=== PATIENT | female | born 1980 | race Hispanic/Latino ===

== ENCOUNTER 2018-07-10 00:26 | Emergency (ER) | payer BC ==
[2018-07-10 01:21] LABS: APPEARANCE,URINE Cloudy (CLEAR); BILIRUBIN,URINE Negative (NEGATIVE); COLOR,URINE Yellow (YELLOW); GLUCOSE, URINE (UA) Negative (NEGATIVE); KETONES,URINE Trace mg/dL (NEGATIVE); LEUKOCYTE ESTERASE ,URINE Large (NEGATIVE); NITRATE,URINE Negative (NEGATIVE); OCCULT BLOOD,URINE Moderate (NEGATIVE); PH,URINE 6.5 (5.0-8.0); PROTEIN,URINE Trace (NEGATIVE); UROBILINOGEN,URINE 0.2 mg/dL (0.2-1.0)
[2018-07-10 02:05] LABS: BASOPHILS % (AUTO) 0.2 % (0.0-5.0); HEMATOCRIT 28.1 % (36-48); LYMPHOCYTES % (AUTO) 4.4 % (21.0-51.0); MEAN CORPUSCULAR HEMOGLOBIN 28.9 pg (27.0-33.0); MEAN CORPUSCULAR HGB CONC 34.6 g/dL (32.0-36.0); MEAN CORPUSCULAR VOLUME 83.7 fL (79-99); MONOCYTES % (AUTO) 8.3 % (3.0-13.0); NEUTROPHILS % (AUTO) 87.1 % (40.0-77.0); NUCLEATED RED BLOOD CELLS 0.1 % (0.0-0.19); PLATELET COUNT (AUTO) 142 K/uL (130-400); RED BLOOD CELL COUNT(AUTO) 3.36 MIL/uL (4.00-5.50); RED CELL DISTRIBUTION WIDTH 15.5 % (11.0-15.5); WHITE BLOOD COUNT (AUTO) 3.2 K/uL (4.8-10.8)
[2018-07-10] MEDS ORDERED: SODIUM CHLORIDE 0.9% 1000ML 1,000 ML IV ONE ×2 (02:08→03:09)
[2018-07-10 02:12] LABS: BACTERIA,URINE Moderate /HPF (None Seen); WBC,URINE 26-50 /HPF (0-1)
[2018-07-10 02:20] LABS: INR 0.96 (0.85-1.15); PARTIAL THROMBOPLASTIN TIME 25.6 SEC (26.3-35.5); PROTHROMBIN TIME 10.1 SEC (9.6-11.6)
[2018-07-10 02:22] LABS: CREATININE 0.7 mg/dL (0.5-1.5); POTASSIUM 3.6 mmol/L (3.5-5.1)
[2018-07-10 02:35] LABS: ALBUMIN 3.4 g/dL (3.5-5.0); BILIRUBIN,TOTAL 0.6 mg/dL (0.2-1.0); MAGNESIUM 1.6 mg/dL (1.80-2.40); THYROID STIMULATING HORMONE 0.69 uIU/mL (0.36-3.74)
[2018-07-10] MEDS ORDERED: MAGNESIUM OXIDE 400 MG TABLET PO ONE (03:09)
[2018-07-10] MEDS ORDERED: MAGNESIUM 2GM PREMIX 50ML 50 ML IV ONE (03:10)
[2018-07-10] MEDS ORDERED: CEFTRIAXONE SODIUM 1 GM ONE (03:10)
== END 2018-07-10 05:13 | disposition home or self-care (01) ==
LOC: EDH 00:26
DX: N39.0 Urinary tract infection, site not specified (principal); E86.9 Volume depletion, unspecified; E83.42 Hypomagnesemia
CPT/HCPCS: 36415; 80053; 81001; 82550; 83605; 83690; 83735; 84443; 84484; 85025; 85610; 85730; 96365; 96366; 96375; 99284; J0696; J3475; J7030 ×2

== ENCOUNTER 2020-03-03 22:04 | Inpatient (IN) | payer BC ==
[~2020-03-03] VITALS: Ht 170.2 cm; Wt 78.9 kg
[2020-03-03 23:08] LABS: BASOPHILS % (AUTO) 0.3 % (0.0-5.0); HEMATOCRIT 36.2 % (36-48); LYMPHOCYTES % (AUTO) 5.5 % (21.0-51.0); MEAN CORPUSCULAR HGB CONC 34.8 g/dL (32.0-36.0); MEAN CORPUSCULAR VOLUME 83.2 fL (79-99); MONOCYTES % (AUTO) 6.9 % (3.0-13.0); NEUTROPHILS % (AUTO) 85.9 % (40.0-77.0); PLATELET COUNT (AUTO) 300 K/uL (130-400); RED BLOOD CELL COUNT(AUTO) 4.35 MIL/uL (4.00-5.50); RED CELL DISTRIBUTION WIDTH 15.7 % (11.0-15.5); WHITE BLOOD COUNT (AUTO) 9.8 K/uL (4.8-10.8)
[2020-03-03 23:23] LABS: BILIRUBIN,TOTAL 0.4 mg/dL (0.2-1.0); POTASSIUM 4.1 mmol/L (3.5-5.1); TOTAL PROTEIN, SERUM 7.3 g/dL (6.0-8.3)
[2020-03-03 23:29] LABS: B-TYPE NATRIURETIC PEPTIDE 5 pg/mL (0-100)
[2020-03-03 23:30] LABS: RAPID GROUP A STREP NEGATIVE (NEGATIVE)
[2020-03-03 23:40] LABS: ALBUMIN 3.1 g/dL (3.5-5.0); CREATININE 0.5 mg/dL (0.5-1.5)
[2020-03-04] MEDS ORDERED: MAGNESIUM OXIDE 400 MG TABLET PO ONE (00:39)
[2020-03-04] MEDS ORDERED: BENZONATATE 100 MG CAPSULE PO ONE (00:40)
[2020-03-04] MEDS ORDERED: IOHEXOL-350 75 ML VIAL IV ONE (00:56)
[2020-03-04] MEDS ORDERED: ALBUTEROL INHALER 90MCG/INH IH PRN (04:15)
[2020-03-04] MEDS ORDERED: ONDANSETRON HCL 4 MG/2 ML VIAL IV PRN (04:30)
[2020-03-04] MEDS ORDERED: DOXYCYCLINE 100MG+NS 250ML IV SCH (04:30)
[2020-03-04] MEDS ORDERED: ACETAMINOPHEN 325 MG TAB PO PRN ×2 (04:30)
[2020-03-04] MEDS ORDERED: CEFTRIAXONE SODIUM 1 GM ONE ×2 (04:32→11:23)
[2020-03-04] MEDS ORDERED: ALBUTEROL INHALER 90MCG/INH IH ONE (04:33)
[2020-03-04] MEDS ORDERED: DOXYCYCLINE HYCLATE 100 MG TABLET PO ONE ×2 (04:35→11:22)
[2020-03-04] MEDS ORDERED: ONDANSETRON HCL 4 MG/2 ML VIAL ONE (05:03)
[2020-03-04 05:30] LABS: HEMATOCRIT 32.5 % (36-48); MEAN CORPUSCULAR HEMOGLOBIN 28.9 pg (27.0-33.0); MEAN CORPUSCULAR HGB CONC 34.5 g/dL (32.0-36.0); MEAN CORPUSCULAR VOLUME 83.8 fL (79-99); PLATELET COUNT (AUTO) 247 K/uL (130-400); RED BLOOD CELL COUNT(AUTO) 3.88 MIL/uL (4.00-5.50); RED CELL DISTRIBUTION WIDTH 15.6 % (11.0-15.5); WHITE BLOOD COUNT (AUTO) 10.1 K/uL (4.8-10.8)
[2020-03-04 06:08] LABS: INR 0.88 (0.85-1.15); PROTHROMBIN TIME 9.6 SEC (9.6-11.6)
[2020-03-04 06:20] LABS: ALBUMIN 2.7 g/dL (3.5-5.0); BILIRUBIN,TOTAL 0.3 mg/dL (0.2-1.0); CREATININE 0.6 mg/dL (0.5-1.5); CRP QUANTITATIVE 69.2 mg/L (0.00-9.0); MAGNESIUM 1.4 mg/dL (1.80-2.40); POTASSIUM 3.8 mmol/L (3.5-5.1); TOTAL PROTEIN, SERUM 6.2 g/dL (6.0-8.3)
[2020-03-04 07:51] LABS: LYMPHOCYTES % (MANUAL) 4 % (22-44); MAN.DIFF COMMENT-IMPRESSION MANUAL DIFFERENTIAL; MONOCYTES % (MANUAL) 4 % (2-9); PLATELET MORPHOLOGY COMMENT ADEQUATE; SEGMENTED NEUTROPHILS % 92 % (40-70)
[2020-03-04] MEDS ORDERED: ERGOCALCIFEROL (VITAMIN D2) 50,000 UNIT CAPSULE PO SCH (10:46)
[2020-03-04] MEDS ORDERED: DIPHENHYDRAMINE HCL 25 MG CAPSULE PO PRN (10:47)
[2020-03-04] MEDS ORDERED: NITROGLYCERIN 0.4 MG SL TAB SL PRN (10:49)
[2020-03-04] MEDS ORDERED: HYDRALAZINE HCL 20 MG/ML VIAL IV PRN (10:50)
[2020-03-04] MEDS ORDERED: METHYLPREDNISOLONE SOD SUCC 40MG/ML 1ML ONE ×2 (11:22→16:46)
[2020-03-04] MEDS ORDERED: ASCORBIC ACID 500 MG TAB ONE (11:22)
[2020-03-04] MEDS ORDERED: ENOXAPARIN SODIUM 40 MG/0.4 ML SYRINGE SQ ONE (11:23)
[2020-03-04] MEDS ORDERED: FAMOTIDINE 20MG TAB 20 MG TAB ONE (11:23)
[2020-03-04] MEDS ORDERED: ERGOCALCIFEROL (VITAMIN D2) 50,000 UNIT CAPSULE ONE (11:23)
[2020-03-04] MEDS ORDERED: ZINC SULFATE 220 CAPSULE ONE (11:23)
--- NOTE | 2020-03-04 18:43 | NUR ---
INITIAL: Call placed to FLAQUITO Morgan (spouse) to discuss dcp. Per Eddie, prior to admission pt was independent w ambulation and ADLs. She has a nebulizer avail. if needed. Per Eddie he transports her where needed. he mentions that they live together w their young children. Per eddie DCP is for pt to return home. CM to continue to follow and wait for MD recommendations. Addendum: 03/04/20 at 1846 by RAMON TROTTER Amended: Links added.
[2020-03-05] MEDS ORDERED: DOXYCYCLINE HYCLATE 100 MG TABLET PO ONE ×3 (00:42→21:04)
[2020-03-05] MEDS ORDERED: CEFTRIAXONE SODIUM 1 GM ONE ×3 (00:42→21:04)
[2020-03-05] MEDS ORDERED: METHYLPREDNISOLONE SOD SUCC 40MG/ML 1ML ONE ×4 (00:42→21:03)
[2020-03-05] MEDS ORDERED: FAMOTIDINE/PF 20 MG/2 ML VIAL IV ONE ×2 (00:43→21:04)
[2020-03-05 06:48] LABS: BASOPHILS % (AUTO) 0.1 % (0.0-5.0); HEMATOCRIT 33.5 % (36-48); LYMPHOCYTES % (AUTO) 4.8 % (21.0-51.0); MEAN CORPUSCULAR HEMOGLOBIN 28.9 pg (27.0-33.0); MEAN CORPUSCULAR HGB CONC 34.6 g/dL (32.0-36.0); MEAN CORPUSCULAR VOLUME 83.3 fL (79-99); MONOCYTES % (AUTO) 1.1 % (3.0-13.0); PLATELET COUNT (AUTO) 244 K/uL (130-400); RED BLOOD CELL COUNT(AUTO) 4.02 MIL/uL (4.00-5.50); RED CELL DISTRIBUTION WIDTH 15.5 % (11.0-15.5); WHITE BLOOD COUNT (AUTO) 8.8 K/uL (4.8-10.8)
[2020-03-05 07:00] LABS: ALANINE AMINOTRANSFERASE 15 U/L (12-78); ALBUMIN 2.7 g/dL (3.5-5.0); ASPARTATE AMINOTRANSFERASE 13 U/L (10-37); BILIRUBIN,TOTAL 0.2 mg/dL (0.2-1.0); CARBON DIOXIDE 26 mmol/L (21-32); CHLORIDE 104 mmol/L (101-111); CREATININE 0.8 mg/dL (0.5-1.5); GLOMERULAR FILTR. RATE CALC 84 mL/min (>60); GLUCOSE,RANDOM 163 mg/dL (70-105); LACTATE DEHYDROGENASE 120 U/L (81-234); POTASSIUM 3.7 mmol/L (3.5-5.1); SODIUM SERUM 137 mmol/L (136-145); TOTAL PROTEIN, SERUM 7.1 g/dL (6.0-8.3); UREA NITROGEN, BLOOD 5 mg/dL (7-18)
[2020-03-05] MEDS ORDERED: ASCORBIC ACID 500 MG TAB ONE (09:29)
[2020-03-05] MEDS ORDERED: ZINC SULFATE 220 CAPSULE ONE (09:30)
[2020-03-05] MEDS ORDERED: FAMOTIDINE 20MG TAB 20 MG TAB ONE (09:30)
[2020-03-05] MEDS ORDERED: ENOXAPARIN SODIUM 40 MG/0.4 ML SYRINGE SQ ONE (09:30)
[2020-03-05] MEDS ORDERED: DiphenhydrAMINE HCL 25 MG/10 ML ELIXIR UDCUP ONE (21:37)
[2020-03-06 06:45] LABS: BASOPHILS % (AUTO) 0.1 % (0.0-5.0); HEMATOCRIT 33.9 % (36-48); LYMPHOCYTES % (AUTO) 2.4 % (21.0-51.0); MEAN CORPUSCULAR HEMOGLOBIN 28.8 pg (27.0-33.0); MEAN CORPUSCULAR HGB CONC 33.9 g/dL (32.0-36.0); MONOCYTES % (AUTO) 2.5 % (3.0-13.0); NEUTROPHILS % (AUTO) 94.1 % (40.0-77.0); PLATELET COUNT (AUTO) 286 K/uL (130-400); RED BLOOD CELL COUNT(AUTO) 3.99 MIL/uL (4.00-5.50); RED CELL DISTRIBUTION WIDTH 15.9 % (11.0-15.5)
[2020-03-06 07:15] LABS: ALANINE AMINOTRANSFERASE 15 U/L (12-78); ALBUMIN 2.8 g/dL (3.5-5.0); ASPARTATE AMINOTRANSFERASE 12 U/L (10-37); BILIRUBIN,TOTAL 0.1 mg/dL (0.2-1.0); CARBON DIOXIDE 28 mmol/L (21-32); CHLORIDE 106 mmol/L (101-111); CREATININE 0.8 mg/dL (0.5-1.5); GLOMERULAR FILTR. RATE CALC 84 mL/min (>60); GLUCOSE,RANDOM 134 mg/dL (70-105); LACTATE DEHYDROGENASE 122 U/L (81-234); POTASSIUM 3.8 mmol/L (3.5-5.1); SODIUM SERUM 140 mmol/L (136-145); UREA NITROGEN, BLOOD 12 mg/dL (7-18)
[2020-03-06] MEDS: DOXYCYCLINE HYCLATE 100 MG TABLET PO SCH ×2 (09:00→20:52)
[2020-03-06] MEDS: ASCORBIC ACID 500 MG TAB PO SCH (09:00)
[2020-03-06] MEDS: FAMOTIDINE 20MG TAB 20 MG TAB PO SCH ×2 (09:00→20:52)
[2020-03-06] MEDS: ZINC SULFATE 220 CAPSULE PO SCH (09:00)
[2020-03-06] MEDS: ENOXAPARIN SODIUM 40 MG/0.4 ML SYRINGE SQ SCH (09:00)
[2020-03-06] MEDS ORDERED: ESTR0.9T2 PO (09:27)
[2020-03-06] MEDS ORDERED: FLUT1DIS4 IH (09:27)
[2020-03-06] MEDS ORDERED: BENZ-51 PO (09:27)
[2020-03-06] MEDS ORDERED: ASCORBIC ACID 500 MG TAB ONE (10:13)
[2020-03-06] MEDS ORDERED: DOXYCYCLINE HYCLATE 100 MG TABLET PO ONE (10:13)
[2020-03-06] MEDS ORDERED: METHYLPREDNISOLONE SOD SUCC 40MG/ML 1ML ONE ×2 (10:13→15:22)
[2020-03-06] MEDS ORDERED: FAMOTIDINE/PF 20 MG/2 ML VIAL IV ONE (10:14)
[2020-03-06] MEDS ORDERED: ZINC SULFATE 220 CAPSULE ONE (10:14)
[2020-03-06] MEDS ORDERED: CEFTRIAXONE SODIUM 1 GM ONE (10:14)
[2020-03-06] MEDS ORDERED: ENOXAPARIN SODIUM 40 MG/0.4 ML SYRINGE SQ ONE (10:14)
[2020-03-06] MEDS: CEFTRIAXONE SODIUM 1 GM IVP SCH ×2 (10:45→23:02)
[2020-03-06] MEDS: METHYLPREDNISOLONE SOD SUCC 40MG/ML 1ML IVP SCH ×2 (14:00→20:52)
[2020-03-06] MEDS ORDERED: ACETAMINOPHEN 325 MG TAB ONE (15:30)
[2020-03-06] MEDS: ALBUTEROL INHALER 90MCG/INH IH SCH ×2 (18:00→23:03)
[2020-03-06 19:30] VITALS: BP 161/90
--- NOTE | 2020-03-06 20:00 | NUR ---
RESP STATUS Pt on room air,denies pain or sob.
--- NOTE | 2020-03-06 22:00 | NUR ---
SHOWER Pt took a shower,tolerated well.
[2020-03-06 23:50] VITALS: BP 131/84
[2020-03-07] MEDS: ALBUTEROL INHALER 90MCG/INH IH SCH ×4 (02:57→14:08)
[2020-03-07 04:00] VITALS: BP 134/97
[2020-03-07 08:00] VITALS: BP 149/85
[2020-03-07 08:16] LABS: BASOPHILS % (AUTO) 0.2 % (0.0-5.0); LYMPHOCYTES % (AUTO) 4.4 % (21.0-51.0); MEAN CORPUSCULAR HEMOGLOBIN 28.5 pg (27.0-33.0); MEAN CORPUSCULAR HGB CONC 33.2 g/dL (32.0-36.0); MEAN CORPUSCULAR VOLUME 85.6 fL (79-99); MONOCYTES % (AUTO) 2.6 % (3.0-13.0); PLATELET COUNT (AUTO) 285 K/uL (130-400); RED BLOOD CELL COUNT(AUTO) 4.32 MIL/uL (4.00-5.50); RED CELL DISTRIBUTION WIDTH 15.9 % (11.0-15.5); WHITE BLOOD COUNT (AUTO) 15.5 K/uL (4.8-10.8)
[2020-03-07 08:28] LABS: ALANINE AMINOTRANSFERASE 23 U/L (12-78); ALBUMIN 2.8 g/dL (3.5-5.0); ASPARTATE AMINOTRANSFERASE 18 U/L (10-37); BILIRUBIN,TOTAL 0.2 mg/dL (0.2-1.0); CARBON DIOXIDE 27 mmol/L (21-32); CHLORIDE 103 mmol/L (101-111); CREATININE 0.7 mg/dL (0.5-1.5); GLOMERULAR FILTR. RATE CALC 99 mL/min (>60); GLUCOSE,RANDOM 100 mg/dL (70-105); LACTATE DEHYDROGENASE 129 U/L (81-234); POTASSIUM 3.6 mmol/L (3.5-5.1); SODIUM SERUM 139 mmol/L (136-145); TOTAL PROTEIN, SERUM 7.1 g/dL (6.0-8.3); UREA NITROGEN, BLOOD 14 mg/dL (7-18)
[2020-03-07] MEDS: FAMOTIDINE 20MG TAB 20 MG TAB PO SCH (11:04)
[2020-03-07] MEDS: CEFTRIAXONE SODIUM 1 GM IVP SCH (11:04)
[2020-03-07] MEDS: ASCORBIC ACID 500 MG TAB PO SCH (11:05)
[2020-03-07] MEDS: DOXYCYCLINE HYCLATE 100 MG TABLET PO SCH (11:05)
[2020-03-07] MEDS: ZINC SULFATE 220 CAPSULE PO SCH (11:05)
[2020-03-07] MEDS: METHYLPREDNISOLONE SOD SUCC 40MG/ML 1ML IVP SCH ×2 (11:05→14:08)
[2020-03-07] MEDS: ENOXAPARIN SODIUM 40 MG/0.4 ML SYRINGE SQ SCH (11:09)
[2020-03-07 12:00] VITALS: BP 173/87
--- NOTE | 2020-03-07 12:00 | NUR ---
PT STATES SOB WHEN WALKING. PENDING RT TO EVAL FOR HOME O2.
[2020-03-07 17:56] VITALS: BP_SYST 118; BP_SYST 145; BP_DIAS 61; BP_DIAS 92
[2020-03-07] MEDS ORDERED: AZIT500T2 PO (18:11)
--- NOTE | 2020-03-07 18:30 | NUR ---
PER MD ORDERS DC'D PT HOME. PIV AND TELE REMOVED. IV TIP INTACT. DISCHARGE AND MEDICATION INSTRUCTIONS GIVEN TO PT TO FOLLOW UP WITH PCP AND ONCOLOGIST. PT STATES UNDERSTANDING. PT WAITING FOR .
== END 2020-03-07 19:15 | disposition home or self-care (01) | DRG 193 ==
LOC: EDH 22:04 → EDHIP 03-04 04:27 → 3BH 03-06 19:46
PROVIDERS: ADMIT Hospitalist; ATTEND Hospitalist
DX: J18.9 Pneumonia, unspecified organism (principal); J96.01 Acute respiratory failure with hypoxia; D89.9 Disorder involving the immune mechanism, unspecified; Z20.828 Contact with and (suspected) exposure to other viral communicable diseases; E83.42 Hypomagnesemia; Z85.41 Personal history of malignant neoplasm of cervix uteri; Z92.21 Personal history of antineoplastic chemotherapy; Z88.8 Allergy status to other drugs, medicaments and biological substances
CPT/HCPCS: 36415; 71045; 71275; 80053; 82550; 82728; 83605; 83615; 83735; 83880; 84145; 84484; 85025; 85378; 85610; 85730; 86140; 87040; 87071; 87116; 87205; 87206; 87804; 87880; 93005; 93970; 94760; G0378; J0696; J1650; J2405; J2920; J3490; Q9967; U0003

== ENCOUNTER 2021-02-04 16:51 | Inpatient (IN) | payer BC, OTHER ==
[~2021-02-04] VITALS: Ht 167.6 cm; Wt 46.3 kg
[2021-02-04] MEDS: NACL 0.9% 1000ML 1,000 ML IV SCH (07:45)
[~2021-02-04 16:51] MED LIST: AZIT500T2 PO; BENZ-70 PO; ESTR0.9T2 PO; FLUT1DIS4 IH
[2021-02-04 16:56] VITALS: BP 176/123
[2021-02-04 17:34] LABS: BASOPHILS % (AUTO) 0.3 % (0.0-5.0); HEMATOCRIT 34.6 % (36-48); LYMPHOCYTES % (AUTO) 1.2 % (21.0-51.0); MEAN CORPUSCULAR HEMOGLOBIN 26.6 pg (27.0-33.0); MEAN CORPUSCULAR HGB CONC 30.6 g/dL (32.0-36.0); MEAN CORPUSCULAR VOLUME 86.7 fL (79-99); MONOCYTES % (AUTO) 2.3 % (3.0-13.0); NEUTROPHILS % (AUTO) 93.9 % (40.0-77.0); PLATELET COUNT (AUTO) 240 K/uL (130-400); RED BLOOD CELL COUNT(AUTO) 3.99 MIL/uL (4.00-5.50); RED CELL DISTRIBUTION WIDTH 18.4 % (11.0-15.5); WHITE BLOOD COUNT (AUTO) 23.1 K/uL (4.8-10.8)
[2021-02-04 17:47] LABS: INR 1.01 (0.85-1.15)
[2021-02-04 17:49] LABS: PARTIAL THROMBOPLASTIN TIME 23.1 SEC (26.3-35.5)
[2021-02-04 17:58] VITALS: BP 161/111
[2021-02-04 17:58] LABS: ALBUMIN 3.2 g/dL (3.5-5.0); BILIRUBIN,TOTAL 0.5 mg/dL (0.2-1.0); CREATININE 0.5 mg/dL (0.5-1.5); POTASSIUM 3.7 mmol/L (3.5-5.1); TOTAL PROTEIN, SERUM 7.1 g/dL (6.0-8.3); TROPONIN I 0.04 ng/mL (0.00-0.06)
[2021-02-04] MEDS ORDERED: LACTATED RINGERS IV ONE (18:00)
[2021-02-04] MEDS ORDERED: ONDANSETRON 4MG INJ IVP ONE (18:00)
[2021-02-04 18:06] LABS: B-TYPE NATRIURETIC PEPTIDE 389 pg/mL (0-100)
[2021-02-04] MEDS ORDERED: MORPHINE 2 MG SYG IVP ONE (18:15)
[2021-02-04] MEDS ORDERED: MORP100S3 PO (18:23)
[2021-02-04] MEDS ORDERED: FENT-77 TD (18:26)
[2021-02-04] MEDS ORDERED: SENN-308 PO (18:28)
[2021-02-04] MEDS ORDERED: DEXA6TAB PO (18:29)
[2021-02-04] MEDS ORDERED: ACET-66 PO (18:30)
[2021-02-04] MEDS ORDERED: DIAZ2TAB3 PO (18:31)
[2021-02-04] MEDS ORDERED: MORPHINE 4 MG SYG ONE (18:33)
[2021-02-04] MEDS ORDERED: PREM125 PO (18:33)
[2021-02-04] MEDS: 0.9% NACL 50ML 50 ML IV SCH (19:45)
[2021-02-04] MEDS ORDERED: NITROGLYCERIN 0.4 MG SL TAB SL PRN (20:00)
[2021-02-04] MEDS ORDERED: ONDANSETRON 4MG INJ IV PRN (20:00)
[2021-02-04] MEDS ORDERED: LABETALOL 20MG VIAL IV SCH (20:00)
[2021-02-04] MEDS ORDERED: ACETAMINOPHEN 325 MG TAB PO PRN ×2 (20:00)
[2021-02-04] MEDS ORDERED: 0.9% NACL 50ML 50 ML IV ONE (20:12)
[2021-02-04] MEDS ORDERED: LABETALOL 20MG SYG IV ONE (20:18)
[2021-02-04] MEDS: ZOSYN 3.375GM +NS 50ML IV SCH (20:19)
[2021-02-04] MEDS: FAMOTIDINE 20MG VIAL IV SCH (20:20)
[2021-02-04] MEDS: MORPHINE 2 MG SYG IVP PRN (20:58)
[2021-02-04 21:08] VITALS: BP 150/110
[2021-02-05] VITALS (19 sets, daily range): BP systolic 108–167; BP diastolic 75–113
[2021-02-05] MEDS: MAGNESIUM 2GM PREMIX 50ML 50 ML IV SCH (00:47)
[2021-02-05] MEDS: ZOSYN 3.375GM +NS 50ML IV SCH ×3 (00:50→18:27)
[2021-02-05] MEDS: 0.9% NACL 50ML 50 ML IV SCH ×2 (03:45→13:14)
[2021-02-05] MEDS: NACL 0.9% 1000ML 1,000 ML IV SCH (06:00)
[2021-02-05 06:24] LABS: BASOPHILS % (AUTO) 0.1 % (0.0-5.0); HEMATOCRIT 31.3 % (36-48); LYMPHOCYTES % (AUTO) 1.4 % (21.0-51.0); MEAN CORPUSCULAR HEMOGLOBIN 27.1 pg (27.0-33.0); MEAN CORPUSCULAR HGB CONC 31.3 g/dL (32.0-36.0); MEAN CORPUSCULAR VOLUME 86.7 fL (79-99); MONOCYTES % (AUTO) 2.7 % (3.0-13.0); NEUTROPHILS % (AUTO) 94.1 % (40.0-77.0); PLATELET COUNT (AUTO) 195 K/uL (130-400); RED BLOOD CELL COUNT(AUTO) 3.61 MIL/uL (4.00-5.50); RED CELL DISTRIBUTION WIDTH 18.1 % (11.0-15.5); WHITE BLOOD COUNT (AUTO) 15.1 K/uL (4.8-10.8)
[2021-02-05 06:36] LABS: ALBUMIN 2.9 g/dL (3.5-5.0); BILIRUBIN,TOTAL 0.3 mg/dL (0.2-1.0); CREATININE 0.4 mg/dL (0.5-1.5); MAGNESIUM 2.4 mg/dL (1.80-2.40); POTASSIUM 4.2 mmol/L (3.5-5.1); TOTAL PROTEIN, SERUM 6.4 g/dL (6.0-8.3)
[2021-02-05] MEDS: MORPHINE 2 MG SYG IVP PRN ×4 (07:48→21:57)
[2021-02-05] MEDS: FAMOTIDINE 20MG VIAL IV SCH ×2 (09:26→20:02)
[2021-02-05] MEDS ORDERED: MEPERIDINE-PF 25 MG/ML SYG ONE (10:50)
[2021-02-05] MEDS ORDERED: PROPOFOL 10 MG/ML 20ML VIAL IV ONE (11:37)
[2021-02-05] MEDS ORDERED: ESMOLOL HCL 10 MG/ML 10 ML VIAL ONE (11:37)
[2021-02-05] MEDS ORDERED: LABETALOL 20MG SYG IV ONE (12:37)
[2021-02-05] MEDS: HYDROMORPHONE 0.5 MG SYG (0.5MG/0.5ML) IVP PRN ×2 (20:03→23:55)
[2021-02-05] MEDS ORDERED: IOHEXOL-350 50ML VIAL IV ONE (20:12)
[2021-02-06] VITALS: BP 142/101
[2021-02-06] MEDS: NACL 0.9% 1000ML 1,000 ML IV SCH (02:00)
[2021-02-06] MEDS: ZOSYN 3.375GM +NS 50ML IV SCH ×4 (02:20→20:21)
[2021-02-06] MEDS: 0.9% NACL 50ML 50 ML IV SCH ×2 (02:21→11:30)
[2021-02-06] MEDS: MORPHINE 2 MG SYG IVP PRN ×5 (02:21→23:51)
[2021-02-06 03:35] VITALS: BP 133/100
[2021-02-06] MEDS: HYDROMORPHONE 0.5 MG SYG (0.5MG/0.5ML) IVP PRN ×5 (04:38→20:48)
[2021-02-06 05:56] LABS: HEMATOCRIT 31.7 % (36-48); MEAN CORPUSCULAR HEMOGLOBIN 27.7 pg (27.0-33.0); MEAN CORPUSCULAR HGB CONC 31.9 g/dL (32.0-36.0); MEAN CORPUSCULAR VOLUME 87.1 fL (79-99); RED BLOOD CELL COUNT(AUTO) 3.64 MIL/uL (4.00-5.50); RED CELL DISTRIBUTION WIDTH 17.9 % (11.0-15.5); WHITE BLOOD COUNT (AUTO) 17.2 K/uL (4.8-10.8)
[2021-02-06 06:22] LABS: ALBUMIN 2.7 g/dL (3.5-5.0); BILIRUBIN,TOTAL 0.7 mg/dL (0.2-1.0); CREATININE 0.4 mg/dL (0.5-1.5); MAGNESIUM 1.6 mg/dL (1.80-2.40); POTASSIUM 3.4 mmol/L (3.5-5.1); TOTAL PROTEIN, SERUM 6.1 g/dL (6.0-8.3)
[2021-02-06] MEDS: MAGNESIUM 2GM PREMIX 50ML 50 ML IV SCH (07:33)
[2021-02-06 08:17] VITALS: BP 170/110
[2021-02-06] MEDS: FAMOTIDINE 20MG VIAL IV SCH ×2 (09:32→20:20)
[2021-02-06 12:00] VITALS: BP 170/110
[2021-02-06] MEDS ORDERED: DIAZEPAM 2 MG TAB PO PRN (12:30)
[2021-02-06] MEDS ORDERED: DEXAMETHASONE 4 MG TAB ONE (12:45)
[2021-02-06] MEDS: BENZONATATE 100 MG CAPSULE PO SCH ×2 (14:49→20:21)
[2021-02-06 16:00] VITALS: BP 199/138
[2021-02-06 19:30] VITALS: BP 166/97
[2021-02-06] MEDS: SENNOSIDES 8.6 MG TABLET PO SCH (20:18)
[2021-02-06] MEDS: DOCUSATE NA 100MG/10ML UDCUP PO SCH (20:19)
[2021-02-06] MEDS: ESTROGENS,CONJUGATED 0.625 MG TAB PO SCH (20:20)
[2021-02-06] MEDS: DEXAMETHASONE 4 MG TAB PO SCH (20:22)
[2021-02-06 21:52] LABS: APPEARANCE,URINE Clear (CLEAR); BILIRUBIN,URINE Negative (NEGATIVE); COLOR,URINE Yellow (YELLOW); GLUCOSE, URINE (UA) Negative (NEGATIVE); KETONES,URINE >=160 mg/dL (NEGATIVE); LEUKOCYTE ESTERASE ,URINE Negative (NEGATIVE); NITRATE,URINE Negative (NEGATIVE); OCCULT BLOOD,URINE Small (NEGATIVE); PROTEIN,URINE POS 1+ mg/dL (NEGATIVE)
[2021-02-06 21:58] LABS: WBC,URINE 0-1 /HPF (0-1)
[2021-02-06 21:59] LABS: BACTERIA,URINE Rare /HPF (None Seen); SQUAMOUS EPITHELIAL CELL,UR Few /HPF (0-2)
[2021-02-07] VITALS (8 sets, daily range): BP systolic 108–195; BP diastolic 79–129
[2021-02-07] MEDS: HYDROMORPHONE 0.5 MG SYG (0.5MG/0.5ML) IVP PRN ×2 (03:04→07:44)
[2021-02-07] MEDS: HYDRALAZINE 20MG/ML VIAL IV PRN (03:36)
[2021-02-07] MEDS: ZOSYN 3.375GM +NS 50ML IV SCH ×2 (03:44→12:20)
[2021-02-07] MEDS: MORPHINE 2 MG SYG IVP PRN ×2 (05:20→17:28)
[2021-02-07 05:47] LABS: BASOPHILS % (AUTO) 0.2 % (0.0-5.0); HEMATOCRIT 31.5 % (36-48); LYMPHOCYTES % (AUTO) 0.9 % (21.0-51.0); MEAN CORPUSCULAR HGB CONC 31.7 g/dL (32.0-36.0); MEAN CORPUSCULAR VOLUME 85.1 fL (79-99); MONOCYTES % (AUTO) 1.3 % (3.0-13.0); NEUTROPHILS % (AUTO) 96.2 % (40.0-77.0); PLATELET COUNT (AUTO) 223 K/uL (130-400); RED CELL DISTRIBUTION WIDTH 17.5 % (11.0-15.5)
[2021-02-07 06:08] LABS: ALBUMIN 2.7 g/dL (3.5-5.0); CREATININE 0.4 mg/dL (0.5-1.5); MAGNESIUM 1.6 mg/dL (1.80-2.40); POTASSIUM 3.5 mmol/L (3.5-5.1); TOTAL PROTEIN, SERUM 6.5 g/dL (6.0-8.3)
[2021-02-07] MEDS: FAMOTIDINE 20MG VIAL IV SCH ×2 (07:44→20:47)
[2021-02-07] MEDS: BENZONATATE 100 MG CAPSULE PO SCH ×2 (09:00→21:00)
[2021-02-07] MEDS: DOCUSATE NA 100MG/10ML UDCUP PO SCH (09:00)
[2021-02-07] MEDS: SENNOSIDES 8.6 MG TABLET PO SCH (09:00)
[2021-02-07] MEDS: LACTATED RINGERS 1000ML 1,000 ML IV SCH (09:13)
[2021-02-07] MEDS: DEXAMETHASONE 4 MG TAB PO SCH ×2 (09:53→20:58)
[2021-02-07] MEDS ORDERED: IOHEXOL-350 75 ML VIAL IV ONE (14:40)
[2021-02-07] MEDS ORDERED: PHARMACY COMMUNICATION MISC SCH (15:00)
[2021-02-07] MEDS: MEROPENEM 1 GM VIAL IVP SCH (18:28)
[2021-02-07] MEDS ORDERED: ENOXAPARIN SODIUM 40 MG/0.4 ML SYRINGE SQ SCH (20:00)
[2021-02-07] MEDS: MAGNESIUM 2GM PREMIX 50ML 50 ML IV SCH (20:50)
[2021-02-07] MEDS: ESTROGENS,CONJUGATED 0.625 MG TAB PO SCH (21:00)
[2021-02-07] MEDS ORDERED: BISACODYL 10 MG SUPP.RECT RC PRN (23:30)
[2021-02-08] VITALS (7 sets, daily range): BP systolic 81–228; BP diastolic 47–155
[2021-02-08] MEDS: MEROPENEM 1 GM VIAL IVP SCH (01:52)
[2021-02-08] MEDS: LACTATED RINGERS 1000ML 1,000 ML IV SCH ×2 (02:58→18:07)
[2021-02-08] MEDS: HYDRALAZINE 20MG/ML VIAL IV PRN (03:49)
[2021-02-08 06:08] LABS: BASOPHILS % (AUTO) 0.2 % (0.0-5.0); EOSINOPHILS % (AUTO) 0.1 % (0.0-8.0); HEMATOCRIT 28.7 % (36-48); LYMPHOCYTES % (AUTO) 0.5 % (21.0-51.0); MEAN CORPUSCULAR HEMOGLOBIN 27.4 pg (27.0-33.0); MEAN CORPUSCULAR HGB CONC 31.4 g/dL (32.0-36.0); MEAN CORPUSCULAR VOLUME 87.2 fL (79-99); MONOCYTES % (AUTO) 1.7 % (3.0-13.0); NEUTROPHILS % (AUTO) 95.9 % (40.0-77.0); PLATELET COUNT (AUTO) 186 K/uL (130-400); RED BLOOD CELL COUNT(AUTO) 3.29 MIL/uL (4.00-5.50); RED CELL DISTRIBUTION WIDTH 18.2 % (11.0-15.5); WHITE BLOOD COUNT (AUTO) 17.9 K/uL (4.8-10.8)
[2021-02-08 06:23] LABS: ALBUMIN 2.4 g/dL (3.5-5.0); BILIRUBIN,TOTAL 0.5 mg/dL (0.2-1.0); CREATININE 0.6 mg/dL (0.5-1.5); POTASSIUM 3.3 mmol/L (3.5-5.1); TOTAL PROTEIN, SERUM 5.7 g/dL (6.0-8.3)
[2021-02-08] MEDS: FAMOTIDINE 20MG VIAL IV SCH ×2 (08:35→20:28)
[2021-02-08] MEDS: DEXAMETHASONE SOD PHOSPHATE 4 MG/ML 1ML VIAL IVP SCH ×2 (08:35→20:28)
[2021-02-08] MEDS: BENZONATATE 100 MG CAPSULE PO SCH ×3 (08:49→20:29)
[2021-02-08] MEDS: MORPHINE 2 MG SYG IVP PRN (17:58)
[2021-02-08] MEDS: HYDROMORPHONE 0.5 MG SYG (0.5MG/0.5ML) IVP PRN (20:28)
[2021-02-08] MEDS: ESTROGENS,CONJUGATED 0.625 MG TAB PO SCH (20:29)
[2021-02-09] MEDS: HYDROMORPHONE 0.5 MG SYG (0.5MG/0.5ML) IVP PRN (00:37)
[2021-02-09 04:04] VITALS: BP 48/31
== END 2021-02-09 04:53 | DRG 871 ==
LOC: EDH 16:51 → OBSVTOIN 19:47 → EDHIP 19:47 → 3BH 02-05 13:25
PROVIDERS: ADMIT Internal Medicine; ATTEND Internal Medicine
PROC: 0DJ08ZZ Inspection of Upper Intestinal Tract, Via Natural or Artificial Opening Endoscopic (ICD-10-PCS; principal; 2021-02-05)
DX: A41.9 Sepsis, unspecified organism (principal); E43 Unspecified severe protein-calorie malnutrition; J18.9 Pneumonia, unspecified organism; J96.21 Acute and chronic respiratory failure with hypoxia; C78.00 Secondary malignant neoplasm of unspecified lung; C56.9 Malignant neoplasm of unspecified ovary; C78.7 Secondary malignant neoplasm of liver and intrahepatic bile duct; E87.1 Hypo-osmolality and hyponatremia; I31.3 Pericardial effusion (noninflammatory); I82.621 Acute embolism and thrombosis of deep veins of right upper extremity; J90 Pleural effusion, not elsewhere classified; R18.8 Other ascites; R64 Cachexia; Z68.1 Body mass index [BMI] 19.9 or less, adult; Z51.5 Encounter for palliative care; Z66 Do not resuscitate; K22.2 Esophageal obstruction; I10 Essential (primary) hypertension; E83.42 Hypomagnesemia; C53.9 Malignant neoplasm of cervix uteri, unspecified; R59.0 Localized enlarged lymph nodes; D72.810 Lymphocytopenia; E86.0 Dehydration; K20.90 Esophagitis, unspecified without bleeding; R13.14 Dysphagia, pharyngoesophageal phase; R62.7 Adult failure to thrive; Z98.891 History of uterine scar from previous surgery; Z85.41 Personal history of malignant neoplasm of cervix uteri; Z91.018 Allergy to other foods; Z88.8 Allergy status to other drugs, medicaments and biological substances
CPT/HCPCS: 36415; 43200; 71045; 71270; 71275; 74176; 80053; 81001; 82550; 83605; 83735; 83874; 83880; 84145; 84484; 85025; 85027; 85610; 85730; 87040; 87088; 87635; 93005; 93970; A4606; G0378; J0360; J1100; J1170; J2175; J2185; J2270; J2405; J2543; J2704; J3475; J3490; J7120; J8540; Q9967